=== PATIENT | female | born 1960 | race Caucasian/White ===

== ENCOUNTER 2020-05-28 10:23 | Emergency (ER) | payer OTHER, BC | END 2020-05-28 13:20 | disposition home or self-care (01) | LOC: JVIRT 10:23 | DX: U07.1 COVID-19 (principal) | CPT/HCPCS: C9803; Q3014-GT; U0003 ==

== ENCOUNTER 2020-09-27 06:00 | Day surgery (SDC) | payer OTHER, BC ==
[2020-09-24 09:20] VITALS: BMI 22.3
[2020-09-27] MEDS ORDERED: ceFAZolin SODIUM 1 GM VIAL IVPB ONE (11:40)
[2020-09-27] MEDS ORDERED: ONDANSETRON 4 MG/2 ML VIAL IVPUSH PRN (12:40)
[2020-09-27] MEDS ORDERED: PROMETHAZINE HCL 25 MG/1 ML VIAL IVPB PRN (12:40)
[2020-09-27] MEDS ORDERED: oxyCODONE HCL 5 MG TABLET PO PRN ×2 (12:40)
[2020-09-27 14:11] VITALS: BP 132/72; PULSE 72; TEMP 98
== END 2020-09-27 14:25 | disposition home or self-care (01) ==
LOC: JASU-SURG 06:00
PROVIDERS: ATTEND Obstetrics & Gynecology
PROC: 0UDB7ZZ Extraction of Endometrium, Via Natural or Artificial Opening (ICD-10-PCS; principal; 2020-09-27 11:00)
PROC: 0UJD8ZZ Inspection of Uterus and Cervix, Via Natural or Artificial Opening Endoscopic (ICD-10-PCS; 2020-09-27 11:00)
DX: N95.0 Postmenopausal bleeding (principal); N88.2 Stricture and stenosis of cervix uteri
CPT/HCPCS: 86850; 86900; 86901; 88305-TC; 94760